=== PATIENT | male | born 1960 | race Caucasian/White ===

== ENCOUNTER 2023-07-07 17:19 | Outpatient (CLI) | payer OTHER, SELFPAY ==
--- NOTE | 2023-07-07 17:30 | CRLHL7_ITS ---
For Patients: As a result of the Century Cures Act, medical imaging exams and procedure reports are released immediately into your electronic medical record. You may view this report before your referring provider. If you have questions, please contact your health care provider. Indication: Low back pain. Technique: Multiplanar, multisequence MRI of the lumbar spine was performed without intravenous contrast. Comparison: None relevant available. Findings: There are 5 lumbar type vertebral segments identified. The vertebral body heights are maintained without evidence of fracture. There is no discrete T1 hypointense marrow infiltrating process. Small bone cyst within the L2 vertebral body. The conus medullaris terminates at L1, normal. Cauda equina appears unremarkable. T12-L1: No spinal canal or neural foraminal stenosis. L1-2: Disc degeneration. Minimal disc bulge without spinal canal or neural foraminal narrowing. L2-3: No spinal canal narrowing. Mild neural foraminal narrowing secondary to disc bulge and facet hypertrophy. Mild facet arthropathy. L3-4: No spinal canal narrowing. Mild neural foraminal narrowing secondary to disc bulging facet hypertrophy. Mild facet arthropathy. L4-5: Disc degeneration. No spinal canal narrowing. Mild to moderate neural foraminal narrowing secondary to disc bulge and facet hypertrophy. Moderate facet arthropathy. L5-S1: Disc bulging with superimposed right foraminal disc protrusion. Moderate to severe right with mild left neural foraminal narrowing. Mild facet arthropathy. Mild sacroiliac joint osteoarthritis. Impression: 1. L5-S1, small right foraminal disc protrusion resulting in moderate to severe right neural foraminal stenosis when combined with facet hypertrophy. Potential impingement of the exiting right L5 nerve. 2. At L4-5, [id number] neural foraminal narrowing. 3. Milder spondylosis at the remaining lumbar levels. 4. Cmpg-wv-yomdrpyd multilevel facet arthropathy. Dictated by Colby Pelletier MD @ 07/08/2023 4:00:19 PM (Electronically Signed)
--- NOTE | 2023-07-07 18:15 | CRLHL7_ITS ---
For Patients: As a result of the Century Cures Act, medical imaging exams and procedure reports are released immediately into your electronic medical record. You may view this report before your referring provider. If you have questions, please contact your health care provider. Indication: Neck pain. Technique: MRI of the cervical spine was performed without the use of intravenous contrast. Comparison: MRI cervical spine 12/21/2017. Findings: The vertebral body heights appear maintained without evidence of fracture. No discrete T1 hypointense marrow infiltrating process. Poag-qc-qahdsfhg multilevel disc height loss and desiccation, most notable at C5-6 and C6-7. Straightening of the cervical lordosis. No abnormal cord signal. C2-3: No spinal canal narrowing. Mild neural foraminal narrowing secondary to uncovertebral and facet hypertrophy. Progressed. C3-4: Disc bulge with mild spinal canal narrowing. Mild to moderate neural foraminal narrowing secondary to uncovertebral and facet hypertrophy. Moderate left facet arthropathy with reactive osseous edema involving the superior articular facet of C4. Progressed. C4-5: Disc bulge resulting in mild spinal canal narrowing. Mild neural foraminal narrowing secondary to uncovertebral and facet hypertrophy. Stable. C5-6: Mild opposing endplate degenerative marrow edema. Disc bulge resulting in ipcc-ow-ozgfvjym spinal canal narrowing. Right foraminal disc protrusion resulting moderately severe neural foraminal narrowing with potential impingement of the exiting right C6 nerve. Jfcz-pn-cpzvecrr left neural foraminal narrowing secondary to uncovertebral joint and facet hypertrophy. Progressed. C6-7: Disc bulge with minimal spinal canal narrowing. Mild to moderate right and mild left neural foraminal narrowing secondary to uncovertebral joint and facet hypertrophy. Stable. C7-T1: No spinal canal or neural foraminal narrowing. Impression: 1. Multilevel progression of degenerative changes since prior study 12/21/2017. 2. At C5-6, mild to moderate spinal canal narrowing, with right foraminal disc protrusion potentially impinging the exiting right C6 nerve. 3. At C6-7, mild to moderate right and mild left neural foraminal narrowing. 4. No abnormal cord signal. Dictated by Colby Pelletier MD @ 07/08/2023 4:09:02 PM (Electronically Signed)
== END 2023-07-07 17:20 | disposition home or self-care (01) ==
LOC: MRI 17:21
PROVIDERS: PCP Family Medicine; Visit Provider Family Medicine
DX: M54.50 Low back pain, unspecified (principal); M51.36 Other intervertebral disc degeneration, lumbar region; M54.2 Cervicalgia; G89.29 Other chronic pain
CPT/HCPCS: 72141; 72148